=== PATIENT | male | born 1960 | race Caucasian/White ===

== ENCOUNTER 2019-10-12 05:45 | Outpatient (RCR) | payer BC ==
[~2019-10-12] VITALS: Ht 175.3 cm; Wt 68.5 kg
[2019-10-12] MEDS ORDERED: LISI10TA2 PO (10:53)
[2019-10-12] MEDS ORDERED: LATA7.5D OP (10:53)
== END 2019-10-12 10:54 | disposition home or self-care (01) ==
LOC: PREOP 05:45
PROVIDERS: ATTEND Surgery
DX: Z01.818 Encounter for other preprocedural examination (principal); Z11.59 Encounter for screening for other viral diseases
CPT/HCPCS: 87635

== ENCOUNTER 2019-10-15 10:39 | Day surgery (SDC) | payer BC ==
[~2019-10-15] VITALS: Ht 175.3 cm; Wt 68.5 kg
[2019-10-15] VITALS (11 sets, daily range): BP systolic 103–161; BP diastolic 56–88
[~2019-10-15 10:39] MED LIST: LATA7.5D OP; LISI10TA2 PO
[2019-10-15] MEDS ORDERED: NS IV 500 ML 500 ML IV PRN (10:43)
[2019-10-15] MEDS ORDERED: fentaNYL INJECTION 100 MCG/2 ML AMP IVP ONE (10:45)
[2019-10-15] MEDS ORDERED: LIDOCAINE JELLY 2% 6 ML SYRINGE MM PRN (10:45)
--- OUTSIDE RECORDS SUMMARY | 2019-10-15 10:46 | XMS REPORT | Continuity of Care Document ---
Author Organization Unknown Address Unknown Phone Unavailable Allergies Active Description Code Type Severity Reaction Onset Reported/Identified Relationship to Patient Clinical Status Yes NO KNOWN DRUG ALLERGIES UNKNOWN NO KNOWN DRUG ALLERG Yes NO KNOWN DRUG ALLERGIES UNKNOWN UNKNOWN Yes No Known Drug Allergies [id number] Drug Allergy Unknown N/A 10/12/2019 Medications There is no data. 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 01/23/2018 Seamus Palomino H57.89 OTHER SPECIFIED DISORDERS OF EYE AND ADNEXA 01/27/2018 CHAPIS CARABALLO 401.0 MALIGNANT ESSENTIAL HYPERTENSION 01/27/2018 CHAPIS CARABALLO I10 ESSENTIAL (PRIMARY) HYPERTENSION 01/27/2018 CHAPIS CARABALLO V76.44 SCREENING FOR MALIGNANT NEOPLASMS OF PROSTATE 01/27/2018 CHAPIS CARABALLO Z12.5 ENCOUNTER FOR SCREENING FOR MALIGNANT NEOPLASM OF PROSTATE 01/27/2018 CHAPIS CARABALLO 401.0 MALIGNANT ESSENTIAL HYPERTENSION 01/27/2018 CHAPIS CARABALLO I10 ESSENTIAL (PRIMARY) HYPERTENSION 01/27/2018 CHAPIS CARABALLO V76.44 SCREENING FOR MALIGNANT NEOPLASMS OF PROSTATE 01/27/2018 CHAPIS CARABALLO Z12.5 ENCOUNTER FOR SCREENING FOR MALIGNANT NEOPLASM OF PROSTATE 01/27/2018 W 401.0 CHRISTIAN GNANT ESSENTIAL HYPERTENSION 01/27/2018 W I10 ESSENT IAL (PRIMARY) HYPERTENSION 01/27/2018 W V76.44 SCR EENING FOR MALIGNANT NEOPLASMS OF PROSTATE 01/27/2018 W Z12.5 ENCO UNTER FOR SCREENING FOR MALIGNANT NEOPLASM OF PROSTATE 01/27/2018 CHAPIS CARABALLO 401.0 MALIGNANT ESSENTIAL HYPERTENSION 01/27/2018 CHAPIS CARABALLO W I10 ESSENTIAL (PRIMARY) HYPERTENSION 01/27/2018 CHAPIS CARABALLO V76.44 SCREENING FOR MALIGNANT NEOPLASMS OF PROSTATE 01/27/2018 CHAPIS CARABALLO Z12.5 ENCOUNTER FOR SCREENING FOR MALIGNANT NEOPLASM OF PROSTATE 07/29/2018 W 272.4 OTHE R AND UNSPECIFIED HYPERLIPIDEMIA 07/29/2018 W 401.0 CHRISTIAN BORGES ESSENTIAL HYPERTENSION 07/29/2018 W E78.5 HYPE RLIPIDEMIA, UNSPECIFIED 07/29/2018 W I10 ESSENT IAL (PRIMARY) HYPERTENSION 07/29/2018 W V70.0 ROUT INE GENERAL MEDICAL EXAMINATION AT A HEALTH CARE FACILITY 07/29/2018 W Z00.00 ENC OUNTER FOR GENERAL ADULT MEDICAL EXAMINATION WITHOUT ABNORMAL FINDINGS 09/01/2018 W 401.0 CHRISTIAN GNELIZABETH ESSENTIAL HYPERTENSION 09/01/2018 W I10 ESSENT IAL (PRIMARY) HYPERTENSION Procedures There is no data. Results Test Result Range PSA Yearly Screen - 01/27/18 09:00 PSA TOTAL 12.0 ng/mL 0.0-4.0 Lipid Panel - 09/01/18 08:05 C/HDL 4.8 3.7-6.7 Cholesterol 189 mg/dL 100-240 HDL 39 mg/dL 30-85 LDL-Calculated 134 mg/dL 0-100 Trig 81 mg/dL 35-160 VLDL 16 mg/dL 0-42 Lipid Panel - 02/03/19 17:10 C/HDL 4.0 3.7-6.7 Cholesterol 172 mg/dL 100-240 HDL 43 mg/dL 30-85 LDL-Calculated 119 mg/dL 0-100 Trig 50 mg/dL 35-160 VLDL 10 mg/dL 0-42 Comprehensive Metabolic Panel - 09/07/19 18:03 Albumin 4.3 g/dL 3.6-5.1 ALP 70 U/L 35-130 ALT 13 U/L 6-45 Anion Gap 10 6-14 AST 17 U/L 2-40 BUN 16 mg/dL 5-25 Calcium 9.1 mg/dL 8.3-10.4 Chloride 107 mmol/L 95-114 CO2 25 mEq/L 22-33 Creat 0.79 mg/dL 0.50-1.50 eGFR 100 mL/min/1.73m2 >59 Globulin 2.8 g/dL 2.3-3.5 Glucose 87 mg/dL 70-110 Osmo 286 280-295 Potassium 4.0 mmol/L 3.5-5.3 Sodium 138 mmol/L 134-148 TBil 0.7 mg/dL 0.2-1.2 TP 7.1 g/dL 6.0-8.3 Coronavirus SARS-CoV-2 SO 2019 - 0 08:21 Coronavirus Ab [Units/volume] in Serum Negative Negative Encounters ACCT No. Visit Date/Time Discharge Status Pt. Type Provider Facility Loc./Unit Complaint [id number] 09/07/2019 18:03:00 09/07/2019 23:59 :00 DIS Outpatient CHAPIS CARABALLO [id number] 09/07/2019 18:02:00 09/07/2019 23:59 :00 DIS Outpatient CHAPIS CARABALLO [id number] 02/03/2019 17:45:00 02/03/2019 23:59: 00 DIS Outpatient CHAPIS CARABALLO [id number] 02/03/2019 14:58:00 02/03/2019 23:59: 00 DIS Outpatient CHAPIS CARABALLO [id number] 09/01/2018 09:31:00 09/01/2018 23:59: 00 DIS Outpatient CHAPIS CARABALLO [id number] 01/27/2018 10:52:00 01/27/2018 23:59: 00 DIS Outpatient CHAPIS CARABALLO [id number] 01/23/2018 12:20:00 01/23/2018 13:40: 00 DIS Outpatient [facility] [id number] 09/01/2018 08:00:00 Document Registration [id number] 07/29/2018 17:00:00 Document Registration [id number] 01/27/2018 09:00:00 Document Registration [id number] 10/12/2019 05:45:00 020 10:54:00 DIS Outpatient GEORGIA LEMA MD [facility] PREOP COLONOSCOPY [id number] 10/15/2019 11:30:00 P EN Preadmit GEORGIA LEMA MD [facility] ENDO SCREENING
[2019-10-15] MEDS ORDERED: NS IV 500 ML 500 ML ONE (10:50)
--- NOTE | 2019-10-15 11:19 | Conscious Sedation/ASA ---
Conscious Sedation Pre-Proced Time 11:00 ASA Score 2 For ASA 3 and 4: Consider anesthesia and medical clearance. Also, for patients with a history of failed moderate sedation consider anesthesia. Airway Lungs Heart ASA score ASA 1: a normal healthy patient ASA 2: a patient with a mild systemic disease (mid diabetes, controlled hypertension, obesity ASA 3: a patient with a severe systemic disease that limits activity (angina, COPD, prior Myocardial infarction) ASA 4: a patient with an incapacitating disease that is a constant threat to life (CHF, renal failure) ASA 5: a moribund patient not expected to survive 24 hrs. (ruptured aneurysm) ASA 6: a declared brain- patient whose organs are being harvested. For emergent operations, add the letter E after the classification Mallampati Classification Grade 2 Sedation Plan Analgesia, Amnesia, Plan communicated to team members, Discussed options with patient/fam, Discussed risks with patient/fam The patient is an appropriate candidate to undergo the planned procedure, sedation, and anesthesia. The patient immediately re-assessed prior to indication. GEORGIA LEMA MD Oct 15, 2019 11:19
--- NOTE | 2019-10-15 11:20 | Progress Note-Pre Operative ---
Pre-Operative Progress Note H&P Reviewed The H&P was reviewed, patient examined and no changes noted. Date Seen by Provider: Oct 15, 2019 Time Seen by Provider: 11:00 Date H&P Reviewed: Oct 15, 2019 Time H&P Reviewed: 11:00 Pre-Operative Diagnosis: screening o GEORGIA LEMA MD Oct 15, 2019 11:20
--- NOTE | 2019-10-15 11:22 | Discharge Inst-Surgical ---
D/C Lap Instructions-PITA Follow Up Activity as tolerated High Fiber Diet 25g or more per day Avoid Alcohol, Caffeine, Spicy [place] and Acid foods. Drink 64 fluid oz or more of fluids per day. Symptoms to Report: Fever over 101 degree F, Nausea/Vomiting If any problems/questions: Contact your physician or go to Emergency Room GEORGIA LEMA MD Oct 15, 2019 11:22
[2019-10-15] MEDS ORDERED: HYDROcodone/APAP 5 MG/325 MG (LORTAB) TAB PO PRN (11:30)
[2019-10-15] MEDS ORDERED: morphine INJ 10 MG/ML 1ML (SYR OR VIAL) IVP PRN ×2 (11:30)
[2019-10-15] MEDS ORDERED: ACETAMINOPHEN 325 MG TABLET PO PRN (11:30)
[2019-10-15] MEDS ORDERED: ONDANSETRON 4 MG/2 ML (SDV) Z0FRAN IVP PRN (11:30)
[2019-10-15] MEDS ORDERED: fentaNYL INJECTION 100 MCG/2 ML AMP ONE (11:53)
[2019-10-15] MEDS ORDERED: LIDOCAINE JELLY 2% 6 ML SYRINGE ONE (11:53)
[2019-10-15] MEDS ORDERED: MIDAZOLAM 5 MG/5 ML (VERSED) VIAL ONE (11:53)
[2019-10-15] MEDS: MIDAZOLAM 5 MG/5 ML (VERSED) VIAL IV PRN ×2 (11:55→12:05)
--- NOTE | 2019-10-15 13:27 | Progress Note-Post Operative ---
Post-Operative Progess Note Surgeon (s)/Drop Clipper (s) Surgeon GEORGIA LEMA MD Drop Clipper: none Pre-Operative Diagnosis screening colo Post-Operative Diagnosis chronic stage 2 ext and int hemorrhoids. Procedure & Operative Findings Date of Procedure 10/15/19 Procedure Performed/Findings colonoscopy Anesthesia Type cs Estimated Blood Loss Estimated blood loss (mL): minimal Specimens/Packing Specimens Removed none GEORGIA LEMA MD Oct 15, 2019 13:27
--- NOTE | 2019-10-15 20:01 | OPERATIVE REPORT ---
DATE OF SERVICE: 10/15/2019 ATTENDING PRIMARY CARE PHYSICIAN: Dr. Jackie Delgado. PREOPERATIVE DIAGNOSIS: Screening colonoscopy. POSTOPERATIVE DIAGNOSIS: Chronic stage II external and internal hemorrhoids. PROCEDURE: Colonoscopy. SURGEON: Georgia Lema MD. ANESTHESIA: Conscious sedation. ESTIMATED BLOOD LOSS: Minimal. FINDINGS: Chronic stage II external and internal hemorrhoids. DISPOSITION: The patient tolerated the procedure well. INDICATIONS: The patient is a 59-year-old male referred over to us for screening colonoscopy. He has not had a colonoscopy up to this point in his life. He states that he is doing well, does not report any major issues with diarrhea nor constipation as well as no red blood per rectum nor any dark tarry stools. He also does not report any family history of colon cancer. DESCRIPTION OF PROCEDURE: The patient was brought to the endoscopy suite, laid in the left lateral decubitus position. After adequate IV pain and sedative medications and conscious sedation anesthesia, digital rectal examination was performed, which revealed chronic stage II external and internal hemorrhoids, not actively edematous nor inflamed and no bleeding. Normal sphincter tone was felt and there were no palpable masses. Prostate gland was palpable and appeared normal. The endoscope was then intubated and anus and rectum gently insufflated. The endoscope was then advanced through the valves of Mart and the rectum with no polyps or any neoplasms identified. Through the sigmoid colon, no diverticulosis identified. We then proceeded to remainder of the descending, transverse and ascending colon to the cecum. These segments were normal. There were no polyps or any neoplasms identified throughout the colon or rectum. The endoscope was slowly withdrawn while taking a second look and suctioning of residual air with no additional findings. The patient tolerated the procedure well. We will recommend a high fiber diet with at least 30 grams of fiber daily as well as significant amounts of water to promote soft stools on a daily basis. He does not need another colonoscopy for another 10 years; however, sooner if he becomes symptomatic. Job ID: [id number] DocumentID: [id number] Dictated Date: 10/15/2019 12:19:05 Supervisor [employer] Date: 10/15/2019 20:01:22 Dictated By: GEORGIA LEMA MD
== END 2019-10-15 13:00 | disposition home or self-care (01) ==
LOC: ENDO 10:39
PROVIDERS: ATTEND Surgery
DX: Z12.11 Encounter for screening for malignant neoplasm of colon (principal); K64.8 Other hemorrhoids; K64.1 Second degree hemorrhoids; I10 Essential (primary) hypertension; Z79.899 Other long term (current) drug therapy; Z82.3 Family history of stroke